=== PATIENT | male | born 2000 | race Caucasian/White ===

== ENCOUNTER 2021-08-07 02:48 | Emergency (ER) | payer BC ==
[2021-08-07 02:48] VITALS: TEMP 98.3
[2021-08-07 04:44] VITALS: BP 144/93; PULSE 93
== END 2021-08-07 04:44 | disposition home or self-care (01) ==
LOC: COL.ER 02:48
DX: S02.2XXA Fracture of nasal bones, initial encounter for closed fracture (principal); S01.112A Laceration without foreign body of left eyelid and periocular area, initial encounter; F10.129 Alcohol abuse with intoxication, unspecified; X58.XXXA Exposure to other specified factors, initial encounter